=== PATIENT | male | born 1960 | race Two or more races ===

== ENCOUNTER 2025-06-23 12:10 | Inpatient (IN) | payer OTHER, SELFPAY ==
[2025-06-23] VITALS (16 sets, daily range): BP systolic 99–150; BP diastolic 71–98; BMI 30.4; BMI 30.3
[2025-06-23] MEDS: CELEBREX 200 MG PO (12:39)
[2025-06-23] MEDS: TYLENOL 1000 MG PO (12:40)
[2025-06-23 12:54] LABS: Glucose - Point of Care 108 mg/dl (70-99)
[2025-06-23] MEDS: NORMOSOL-R/PLASMALYTE-A 1000 IV (12:55)
[2025-06-23 13:10] LABS: Hematocrit 43.2 % (39.0-52.0); Hemoglobin 14.3 g/dL (13.0-18.0); Mean Corp Hgb Conc. 33.1 g/dL (33.0-37.0); Mean Corpuscular Volume 89.8 fL (80.0-94.0); Platelet Count 368 10^3/uL (130-400); Red Cell Dist. Width 12.0 % (11.5-14.5)
[2025-06-23 13:33] LABS: Blood Urea Nitrogen 12 mg/dl (9-20); Calcium 9.6 mg/dl (8.4-10.2); Carbon Dioxide 27 mmol/L (22-30); Chloride 105 mmol/L (98-107); Estimated Creatinine Clearance > 125 ml/min; Glucose 113 mg/dl (70-99); Potassium 4.1 mmol/L (3.5-5.1); Sodium 140 mmol/L (135-145); eGFR > 60.00
[2025-06-23 15:15] LABS: Glucose - Point of Care 110 mg/dl (70-99)
--- NOTE | 2025-06-23 15:24 | W.PN.SURGUPD ---
Surgical Update
Surgical Update
64 yo M s/p right partial 5th ray amputation primary closed
-Primary closed, no further surgical plans at the moment
-Recommend IV antibiotics per culture results
-1x culture, 2x pathology specimens obtained
-Patient to be NWB while inpatient, anticipate heel WB upon discharge pending clinical evaluations
-Will re assess on AM rounds
--- NOTE | 2025-06-23 15:31 | HPS.HSE ---
Addendum entered and electronically signed by Kierra Lockett MD 06/23/25 17:08:
Addendum
I saw and examined the patient.
The TRANSMISSION REPAIRER or PA's note was reviewed and I agree with the note.
Comment:
64 years old male presented for scheduled right partial fifth toe amputation by Dr. Gaston. Patient underwent the procedure well without complication. OR culture was sent. Discussed with gun club manager, recommend vancomycin until culture is back.
Patient had MRI at [facility], no records available.
Physical Exam
General: Well Developed, Well Nourished, No Apparent Distress, Comfortable and Conversant
HEENT: NormoCephalic, Moist mucous membranes, PERRLA, Ears Appear Normal and Hearing Impaired
Respiratory: Clear and Non Labored Respirations; No Wheezes, Rales, Rhonchi or Crackles
Cardiac: S1/S2 and Regular Rhythm; No Murmur, Rub or Gallop
GI: Soft, Non Tender, Non Distended and Normal Bowel Sounds
Musculoskeletal: No Clubbing and No Cyanosis
Skin: Warm, IV/Catheter Site and Other (RLE wrapped post surgery with cristy )
Neuro: Awake and AO x 3
Hematologic/Lymphatic: No Lymphadenopathy
Psych: Calm and Intact Judgment/Insight
#s/p right partial 5th ray amputation
Discussed with Dr. Jurado. Clean surgery site with a fresh looking wound. Primary closure was done.
Continue with vancomycin. Add cefepime.
Continue with pain control, Tylenol and as needed oxycodone
Await OR cultures
#hypertension
- continue lisinopril and metoprolol
#hyperlipidemia
- continue atorvastatin
#type 2 diabetes
- AccuCheck AC & HS
- SSI
- continue Jardiance
- hold metformin while in patient
#CAD
s/p CABG x3 vessel
- continue aspirin and clopidogrel
#COPD
- continue albuterol and Trelegy
#Hx osteomyelitis
Code status: full code
DVT prophylaxis: Lovenox
�
Total time spent to see the patient, examine the patient, review data and lab results, discuss treatment plan with patient, podiatry, nursing staff around 75 minutes
Original Note:
Family Physician
-
Family Physician: NOT KNOW UNKNOWN - PT DOES
Chief Complaint
-
admission post right partial ray amputation for IV antibiotics
History of Present Illness
Patient is a 64-year-old male with past medical history significant for hypertension, hyperlipidemia, type 2 diabetes, COPD and Hx osteomyelitis who presented to [facility] for scheduled right partial 5th ray amputation with Dr. Blayne Jurado. Patient
surgery without adverse events, seen in PACU. Patient workup was done out patient at [place], it was noted that patient is generally noncompliant. Plan for surgery was to complete amputation and have secondary closure, surgeon reported fresh blood
and tissue and elected for primary closure while in OR. Patient denies any recent fever, chills, cough, shortness of breath, chest pain, nausea, vomiting, constipation, diarrhea or urinary symptoms.
Medical History
Past Medical History
Past Medical History: Reports Other
Additional Past Medical History:
hypertension
hyperlipidemia
type 2 diabetes
COPD
Hx osteomyelitis
Past Surgical History: Reports Other
Additional Past Surgical History:
CABG x3 vessel
right partial 5th ray amputation
Social History
Tobacco: Former Smoker (quit 7 years ago )
Alcohol: Occasional
Drug: None
Living: With Family
Employment: Retired
Family History
Family History: Other (Father: COPD, [place]; Mother: Alzheimer's )
Allergies / Home Medications
Allergies reflects when Allergies were last updated in [facility].
Home Medications with original date entered in [facility]
Allergy/Medication List:
Allergies
Allergy/AdvReac Type Severity Reaction Status Date / Time
Penicillins Allergy Unknown Unknown Verified 06/23/25 12:24
Home Medications
albuterol sulfate 0.63 mg/3 mL solution for nebulization 0.63 mg inhalation BID 06/23/25
aspirin 81 mg capsule 81 mg PO DAILY 06/23/25
atorvastatin 40 mg tablet 40 mg PO HS 06/23/25
clopidogrel 75 mg tablet 75 mg PO DAILY 06/23/25
empagliflozin 25 mg tablet (Jardiance) 25 mg PO DAILY 06/23/25
fluticasone fur. 100 mcg-umeclid 62.5 mcg-vilant 25 mcg inhalat.powder (Trelegy Ellipta) 1 inh inhalation DAILY 06/23/25
lisinopril 5 mg tablet 5 mg PO DAILY 06/23/25
metformin 500 mg tablet 500 mg PO BID 06/23/25
metoprolol tartrate 50 mg tablet 25 mg PO BID 06/23/25
Review of Systems
-
History Source: Patient
Constitutional: Reports No Symptoms
EENT: Reports No Symptoms
Respiratory: Reports No Symptoms
Cardiac: Reports No Symptoms
Abdomen/GI: Reports No Symptoms
: Reports No Symptoms
Musculoskeletal: Reports No Symptoms
Skin: Reports No Symptoms
Neurological: Reports No Symptoms
Endocrine: Reports No Symptoms
Hematologic/Lymphatic: Reports No Symptoms
Psych: Reports No Symptoms
Physical Exam
Vital Signs
Vital Signs
Temp Pulse Resp BP Pulse Ox
98.7 F 79 18 146/83 95
06/23/25 12:35 06/23/25 12:35 06/23/25 12:35 06/23/25 12:35 06/23/25 12:35
Physical Exam
General: Well Developed, Well Nourished, No Apparent Distress, Comfortable and Conversant
HEENT: NormoCephalic, Moist mucous membranes, PERRLA, Ears Appear Normal and Hearing Impaired
Respiratory: Clear and Non Labored Respirations; No Wheezes, Rales, Rhonchi or Crackles
Cardiac: S1/S2 and Regular Rhythm; No Murmur, Rub or Gallop
GI: Soft, Non Tender, Non Distended and Normal Bowel Sounds
Musculoskeletal: No Clubbing and No Cyanosis
Skin: Warm, IV/Catheter Site and Other (RLE wrapped post surgery with cristy )
Neuro: Awake and AO x 3
Hematologic/Lymphatic: No Lymphadenopathy
Psych: Calm and Intact Judgment/Insight
Laboratory Results
-
06/23/25 12:54
06/23/25 12:54
Data Reviewed
-
Medical Tests (Nuc Med, Echo, EKG etc): Report Reviewed by me (EKG: NORMAL SINUS RHYTHM POSSIBLE LEFT ATRIAL ENLARGEMENT NONSPECIFIC T WAVE ABNORMALITY)
Lab Data: Labs Reviewed by me
Impression/Plan
-
IMPRESSION/PLAN:
#s/p right partial 5th ray amputation
EKG: NORMAL SINUS RHYTHM
POSSIBLE LEFT ATRIAL ENLARGEMENT
NONSPECIFIC T WAVE ABNORMALITY
- Admit to med/surg
- Consult podiatry
- IV Vanco and Cefepime
- supportive care
- Consult PT
#hypertension
- continue lisinopril and metoprolol
#hyperlipidemia
- continue atorvastatin
#type 2 diabetes
- AccuCheck AC & HS
- SSI
- continue Jardiance
- hold metformin while in patient
#CAD
s/p CABG x3 vessel
- continue aspirin and clopidogrel
#COPD
- continue albuterol and Trelegy
#Hx osteomyelitis
Code status: full code
DVT prophylaxis: Lovenox
[2025-06-23 16:06] LABS: Glucose - Point of Care 100 mg/dl (70-99)
[2025-06-23] MEDS: VANCOCIN 540 MG IV (16:58)
[2025-06-23] MEDS: NOVOLOG FLEXPEN-LOW RESISTANCE SC (18:53)
--- NOTE | 2025-06-23 19:20 | PHA.VAN.IN ---
Assessment
- Assessment
Renal Function: Unknown baseline
Concomitant Antimicrobials: cefepime 2 g IV Q8H
AUC Dosing Plan
- Dosing Variables
Dosing Weight (kg): 113.398
Dosing CrCl (ml/min): >125
Vd coefficient (L/kg): 0.7
- Empiric Dosing
Initial / Loading Dose: 2000 mg
Maintenance Regimen: 1250 mg IV Q12H
Estimated AUC (mcg*h/mL): 549
Estimated Peak (mcg*h/mL): 37.8
Estimated Trough (mcg/ml): 12.1
Estimated Half Life (H): 6.4
- Monitoring
No levels ordered at this time: levels to be ordered on follow-up
Pharmacokinetics Vancomycin I
- -
Patient Age: 64
Patient Sex: Male
Vancomycin Day #: 1
Indication: Bone And Joint
Requesting Provider: Marylin VALENZUELA
Pertinent Antimicrobial Allergies:
penicillins
Height / Weight:
Height 6 ft 4 in
Actual Weight 113.398 kg
- Vital Signs / Lab Results
Temp Pulse Resp BP Pulse Ox
97.7 F 119 17 135/76 94
06/23/25 16:22 06/23/25 18:30 06/23/25 18:15 06/23/25 19:00 06/23/25 19:00
Lab Results - Hematology
06/23/25
12:54
WBC 8.8
Lab Results - Chemistry
06/23/25
12:54
BUN 12
Creatinine 0.7
Estimated Creat Clear > 125
Microbiology Results
06/23/25 Unknown Gram Stain - Preliminary
Foot - Right
[2025-06-23] MEDS: SYMBICORT 80/4.5 MCG INHALER 2 PUFF INH (20:12)
[2025-06-23 21:23] LABS: Glucose - Point of Care 175 mg/dl (70-99)
[2025-06-23] MEDS: STERILE WATER FOR INJECTION 10 ML IV (21:25)
[2025-06-23] MEDS: LOVENOX 40 MG SC (21:25)
[2025-06-23] MEDS: LIPITOR 40 MG PO (21:25)
[2025-06-23] MEDS: LOPRESSOR 25 MG PO (21:26)
[2025-06-23] MEDS: MAXIPIME 2000 MG IV (21:26)
--- NOTE | 2025-06-23 23:06 | TRANSFER ---
Received pt post op right partial 5th ray amputation @ 1920. Right foot dressed w 4x4, adaptic and cristy. +popiteal pulse, pt denied pain. VSS. patient made aware of non wt bearing status. Assessment as documented. Care ongoing.
[2025-06-24 03:17] VITALS: BP 141/84
[2025-06-24] MEDS: MAXIPIME 2000 MG IV ×3 (05:54→21:17)
[2025-06-24] MEDS: STERILE WATER FOR INJECTION 10 ML IV ×3 (05:54→21:17)
[2025-06-24] MEDS: VANCOCIN 275 MG IV ×2 (05:54→17:28)
--- NOTE | 2025-06-24 06:39 | OR.RPT ---
Operative Report
Operative Report
Operative Report
Patient Name:�Douglas Lowery
Medical Record Number:�[id number]
Date of Surgery:�[Date]
Surgeon:�Eddie Jurado DPM
Assistants:�Eddie Curiel DPM
Preoperative Diagnosis:
Osteomyelitis of the 5th metatarsal head and base of the proximal phalanx
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
Postoperative Diagnosis:
Same as preoperative
Procedure Performed:
Right partial 5th ray amputation CPT 22605
Anesthesia:
Monitored anesthesia care with local block (20 cc of 0.5% bupivacaine plain)
Hemostasis:
Anatomic dissection
Estimated Blood Loss:
Less than 20 mL
Specimens:
Resected 5th metatarsal head and proximal phalanx base sent for pathology
Metatarsal clearing fragment sent for pathology
Deep tissue and bone cultures obtained following irrigation (�post-washout cultures�)
Complications:
None
Indications for Procedure:
The patient presented with a chronic nonhealing wound overlying the right 5th MTPJ, refractory to conservative management. MRI demonstrated osteomyelitis involving the 5th metatarsal head and base of the proximal phalanx, as well as septic arthritis
of the 5th MTPJ. Given the chronicity of the infection and poor local tissue condition, a partial 5th ray amputation was indicated to achieve source control, facilitate healing, and preserve as much foot function as possible.
Operative Description:
The patient was brought to the operating room and placed supine on the operating table. Following the induction of anesthesia, the right lower extremity was prepped and draped in the usual sterile fashion.
Attention was directed to the lateral aspect of the right foot where a chronic ulceration was noted overlying the 5th MTPJ. A full-thickness elliptical incision was made encompassing the wound and extending proximally along the 5th metatarsal shaft
to healthy, viable tissue margins. The incision was deepened through subcutaneous tissue with care taken to preserve viable tissue planes.
Dissection was carried down to the level of the 5th metatarsal, which appeared soft and discolored at the head and distal shaft consistent with osteomyelitis. The 5th MTPJ capsule was incised. The base of the proximal phalanx was similarly eroded.
The 5th digit and distal 5th metatarsal were resected using a sagittal saw at a level of healthy, bleeding bone approximately at the distal third of the metatarsal. The specimen was passed off for pathology. A cleared fragment of the 5th�metatarsal
shaft was then obtained.
All devitalized soft tissue was sharply debrided until only viable bleeding tissue remained. The wound was copiously irrigated with normal saline. After irrigation, deep tissue and bone samples were obtained for cultures.
Inspection of the remaining wound bed showed no residual purulence, necrosis, or other evidence of infection. Hemostasis was achieved with electrocautery.
Given the surgical site appeared completely free from infection, the wound was deemed appropriate for primary closure. Deep tissues were reapproximated with 2-0 Vicryl sutures, subcutaneous tissues with 3-0 Vicryl, and the skin was closed with 3-0
Prolene in a simple interrupted fashion. The surgical site was dressed with betadine, sterile non-adherent gauze, 4x4s, Kerlix, and a light compressive wrap.
The patient tolerated the procedure well and was transported to the recovery unit in stable condition with intact vascular status to the remaining foot. The patient will remain [id number] on the right lower extremity. He will be admitted for
IV antibiotics, physical therapy, and monitoring of culture results. The dressing is to remain clean, dry, and intact until the first postoperative visit.
[2025-06-24 07:00] VITALS: BP 143/91
[2025-06-24 07:24] LABS: Hematocrit 40.8 % (39.0-52.0); Hemoglobin 13.3 g/dL (13.0-18.0); Mean Corp Hgb Conc. 32.6 g/dL (33.0-37.0); Mean Corpuscular Volume 92.1 fL (80.0-94.0); Platelet Count 370 10^3/uL (130-400); Red Cell Dist. Width 12.0 % (11.5-14.5)
[2025-06-24 07:43] LABS: Glucose - Point of Care 175 mg/dl (70-99)
--- NOTE | 2025-06-24 07:54 | W.PN.UPDATE ---
Update Note
Progress Note Update
64 yo M s/p right partial 5th ray amputation primary closure. Doing well this AM, no pain, CFT wnl, gross motor function intact
-Primary closed, no further surgical plans at the moment
-Recommend IV antibiotics per culture results
-1x culture, 2x pathology specimens obtained
-Patient to be NWB while inpatient, anticipate heel WB upon discharge pending clinical evaluations
-will follow
[2025-06-24 07:55] LABS: Blood Urea Nitrogen 11 mg/dl (9-20); Calcium 9.4 mg/dl (8.4-10.2); Carbon Dioxide 28 mmol/L (22-30); Chloride 103 mmol/L (98-107); Estimated Creatinine Clearance > 125 ml/min; Glucose 115 mg/dl (70-99); Potassium 4.6 mmol/L (3.5-5.1); Sodium 138 mmol/L (135-145); eGFR > 60.00
[2025-06-24] MEDS: NOVOLOG FLEXPEN-LOW RESISTANCE 1 UNITS SC (08:00)
[2025-06-24] MEDS: SPIRIVA RESPIMAT 2.5 MCG 2 PUFF INH (08:10)
[2025-06-24] MEDS: SYMBICORT 80/4.5 MCG INHALER 2 PUFF INH ×2 (08:11→20:07)
[2025-06-24] MEDS: ZESTRIL 5 MG PO (09:06)
[2025-06-24] MEDS: PLAVIX 75 MG PO (09:06)
[2025-06-24] MEDS: FARXIGA 10 MG PO (09:06)
[2025-06-24] MEDS: ASPIR LOW (ENTERIC COATED) 81 MG PO (09:06)
[2025-06-24] MEDS: LOPRESSOR 25 MG PO ×2 (09:06→21:16)
[2025-06-24] MEDS: ROXICODONE 5 MG PO ×3 (09:18→21:29)
[2025-06-24 09:42] LABS: Glycohemoglobin (HgbA1c) 6.4 % (4.0-5.6)
--- NOTE | 2025-06-24 09:53 | PHA.VAN.FU ---
Vancomycin Assessment / Plan
- Assessment
Renal Function: Stable
In the past 24 hrs, patient has been: Afebrile
Concomitant Antimicrobials: cefepime
- Dosing Plan
Continue: Vanc 1250mg Q12H
- Monitoring Plan
No level(s) ordered at this time: consider levels in next few days
- Follow Up
Pharmacy will continue to follow.
Vancomycin Follow UP
- -
Patient Age: 64
Patient Sex: Male
Vancomycin Day #: 2
Indication: Bone And Joint
Requesting Provider: Marylin VALENZUELA
Pertinent Antimicrobial Allergies:
penicillins - as a child
Height / Weight:
Height 6 ft 4 in
Actual Weight 112.945 kg
Pertinent Past Medical History: BMI ~30, DM 2
- Vital Signs / Lab Results
Temp Pulse Resp BP Pulse Ox
98.4 F 72 18 143/91 97
06/24/25 07:00 06/24/25 09:06 06/24/25 07:00 06/24/25 09:06 06/24/25 07:00
Lab Results - Hematology
06/23/25 06/24/25
12:54 06:46
WBC 8.8 11.2 H
Lab Results - Chemistry
06/23/25 06/24/25
12:54 06:46
BUN 12 11
Creatinine 0.7 0.6 L
Estimated Creat Clear > 125 > 125
Microbiology Results
06/23/25 Unknown Gram Stain - Preliminary
Foot - Right
[2025-06-24] MEDS: TYLENOL 650 MG PO ×2 (10:29→21:28)
[2025-06-24 10:56] LABS: Glucose - Point of Care 100 mg/dl (70-99)
[2025-06-24 11:00] VITALS: BP 128/74
[2025-06-24] MEDS: NOVOLOG FLEXPEN-LOW RESISTANCE SC ×2 (11:04→17:27)
[2025-06-24 11:28] VITALS: BP 137/74; PULSE 75
--- NOTE | 2025-06-24 13:45 | W.PN.HOSP.TC ---
Today's Communication/Plan
-
.
Assessment / Plan
Assessment / Plan
Physical Exam
General: Well Developed, Well Nourished, No Apparent Distress, Comfortable and Conversant
HEENT: NormoCephalic, Moist mucous membranes, PERRLA, Ears Appear Normal and Hearing Impaired
Respiratory: Clear and Non Labored Respirations; No Wheezes, Rales, Rhonchi or Crackles
Cardiac: S1/S2 and Regular Rhythm; No Murmur, Rub or Gallop
GI: Soft, Non Tender, Non Distended and Normal Bowel Sounds
Musculoskeletal: No Clubbing and No Cyanosis
Skin: Warm, IV/Catheter Site and Other (RLE wrapped post surgery with cristy )
Neuro: Awake and AO x 3
Hematologic/Lymphatic: No Lymphadenopathy
Psych: Calm and Intact Judgment/Insight
#s/p right partial 5th toe amputation
Discussed with Dr. Jurado. Clean surgery site with a fresh looking wound. Primary closure was done.
Continue with vancomycin. Add cefepime.
Continue with pain control, Tylenol and as needed oxycodone
Await OR cultures
# Leukocytosis
Afebrile
await culture
Empiric ABX
#hypertension
- continue lisinopril and metoprolol
#hyperlipidemia
- continue atorvastatin
#type 2 diabetes
- AccuCheck AC & HS
- SSI
- HGB A1C 6.4
- continue Jardiance
- hold metformin while in patient
#CAD
s/p CABG x3 vessel
- continue aspirin and clopidogrel
#COPD
- continue albuterol and Trelegy
#Hx osteomyelitis
Code status: full code
DVT prophylaxis: Lovenox
�
Total time spent to see the patient, examine the patient, review data and lab results, discuss treatment plan with patient, podiatry, nursing staff around 55 minutes
Anticipated Discharge: 24 - 48 hours
Subjective/Interval History
-
Date of Service: June 24, 2025
No chest pain
No SOB
No abd pain
Mild pain in right foot
Objective Data
-
Labs:
Laboratory Results
06/24/25
06:46
WBC 11.2 H
Hgb 13.3
Hct 40.8
Plt Count 370
Sodium 138
Potassium 4.6
Chloride 103
Carbon Dioxide 28
BUN 11
Creatinine 0.6 L
Glucose 115 H
Calcium 9.4
Vital Signs:
Vital Signs
Temp Pulse Resp BP Pulse Ox
98.0 F 70 20 128/74 95
06/24/25 11:00 06/24/25 11:00 06/24/25 11:00 06/24/25 11:00 06/24/25 11:00
I&O
06/23/25 06/24/25 06/25/25
06:59 06:59 06:59
Intake Total 240 / 240 535 / 535
Output Total 2100 / 2100 300 / 300
Balance -1860 / -1860 235 / 235
[2025-06-24 15:00] VITALS: BP 140/73
--- NOTE | 2025-06-24 15:36 | CM ---
CM met with pt bedside
Pt resides with his sons who work out of the home- home alone most of the time
[facility] with [address] [facility] on [address] [place], full flight to 2nd floor
Pt has powder room on 1st and will have 1st floor set up on dc
Pt is typically independent with his ADLs, no ADs
He is current with [facility] for wound care to his foot
PCP- Betito Johnson
Rx- [facility]
Pt is POD#1 5th toe amp with [facility] recs by therapy
Will plan for [facility] on dc at this time
Pt will be NWB during admission and anticipate heel W/C with shoe on dc
Pt will need WW- due to [facility] plan, therapy cannot be issued beside
CM to arrange for WW through DME provider, will watch for possible W/C needs if he remains NWB on dc
Discharge Disposition- anticipate home with [facility], new WW and possibly new W/C
[2025-06-24 17:25] LABS: Glucose - Point of Care 105 mg/dl (70-99)
[2025-06-24] MEDS: LOVENOX 40 MG SC (18:41)
[2025-06-24] MEDS: LIPITOR 40 MG PO (21:16)
[2025-06-24 21:57] LABS: Glucose - Point of Care 125 mg/dl (70-99)
[2025-06-24 23:15] VITALS: BP 133/80
[2025-06-25] MEDS: MAXIPIME 2000 MG IV (06:00)
[2025-06-25] MEDS: STERILE WATER FOR INJECTION 10 ML IV (06:00)
[2025-06-25] MEDS: VANCOCIN 275 MG IV (06:00)
[2025-06-25] MEDS: TYLENOL 650 MG PO ×3 (06:07→22:07)
[2025-06-25] MEDS: ROXICODONE 5 MG PO ×3 (06:14→19:39)
[2025-06-25 07:05] VITALS: BP 137/80
[2025-06-25 07:22] LABS: Glucose - Point of Care 113 mg/dl (70-99)
--- NOTE | 2025-06-25 07:48 | VATNOTE ---
Called by floor to evaluate IV site after vancomycin infiltration, asked PCN to apply heat and elevate the extremity immediately. Upon this RNs assessment, pt says there is mild soreness at the site, erythema noted but no swelling appreciated. Heat
applied, will continue to monitor.
[2025-06-25] MEDS: SYMBICORT 80/4.5 MCG INHALER 2 PUFF INH ×2 (07:53→19:31)
[2025-06-25] MEDS: SPIRIVA RESPIMAT 2.5 MCG 2 PUFF INH (07:53)
[2025-06-25] MEDS: NOVOLOG FLEXPEN-LOW RESISTANCE SC ×3 (08:06→17:11)
[2025-06-25] MEDS: PLAVIX 75 MG PO (08:10)
[2025-06-25] MEDS: FARXIGA 10 MG PO (08:10)
[2025-06-25] MEDS: ASPIR LOW (ENTERIC COATED) 81 MG PO (08:10)
[2025-06-25] MEDS: ZESTRIL 5 MG PO (08:10)
[2025-06-25] MEDS: LOPRESSOR 25 MG PO ×2 (08:13→19:38)
--- NOTE | 2025-06-25 09:10 | W.PN.UPDATE ---
Update Note
Progress Note Update
64 yo M s/p right partial 5th ray amputation primary closure. Doing well this AM, no pain, CFT wnl, gross motor function intact, incision line with skin well reapproximated, all sutures in place, no drainage, no hematoma
- dressing chaged betadine paint, dsd, cristy
-Recommend IV antibiotics in patient
-- transition to PO abx on dc
-1x culture NGTD, 2x pathology
-Patient to be NWB while inpatient, anticipate heel WB upon discharge pending clinical evaluations
-- obtaining darco wedge orthopedic shoe
-may follow up in office with Dr. Jurado
--- NOTE | 2025-06-25 09:53 | W.PN.HOSP.TC ---
Today's Communication/Plan
-
dc in am 06/26, will consult onsite case manager
change to oral antibiotics.
Assessment / Plan
Assessment / Plan
Physical Exam
General: Well Developed, Well Nourished, No Apparent Distress, Comfortable and Conversant
HEENT: NormoCephalic, Moist mucous membranes, PERRLA, Ears Appear Normal and Hearing Impaired
Respiratory: Clear and Non Labored Respirations; No Wheezes, Rales, Rhonchi or Crackles
Cardiac: S1/S2 and Regular Rhythm; No Murmur, Rub or Gallop
GI: Soft, Non Tender, Non Distended and Normal Bowel Sounds
Musculoskeletal: No Clubbing and No Cyanosis
Skin: Warm, IV/Catheter Site and Other (RLE wrapped post surgery with cristy )
Neuro: Awake and AO x 3
Hematologic/Lymphatic: No Lymphadenopathy
Psych: Calm and Intact Judgment/Insight
#s/p right partial 5th toe amputation
Discussed with Dr. Jurado. Clean surgery site with a fresh looking wound. Primary closure was done.
Dressing was changed 06/25: Healing well with no bleeding. Okay to continue Lovenox.
S/p vancomycin and cefepime. OR culture : No growth to date. Patient was taking doxycycline for several days before surgery.
Discussed with podiatry, will do doxycycline and Keflex for 7 days post surgery.
Continue with pain control, Tylenol and as needed oxycodone
# Leukocytosis
Afebrile
#hypertension
- continue lisinopril and metoprolol
#hyperlipidemia
- continue atorvastatin
#type 2 diabetes
- AccuCheck AC & HS
- SSI
- HGB A1C 6.4
- continue Jardiance
-Resume metformin
#CAD
No chest pain. No shortness of breath
s/p CABG x3 vessel
- continue aspirin and clopidogrel
#COPD
- continue albuterol and Trelegy
#Hx osteomyelitis
Code status: full code
DVT prophylaxis: Lovenox
�
Total time spent to see the patient, examine the patient, review data and lab results, discuss treatment plan with patient, podiatry, nursing staff around 55 minutes
Anticipated Discharge: Within 24 hours
Subjective/Interval History
-
Date of Service: June 25, 2025
Objective Data
-
Vital Signs:
Vital Signs
Temp Pulse Resp BP Pulse Ox
97.9 F 67 16 137/80 96
06/25/25 07:05 06/25/25 08:10 06/25/25 07:58 06/25/25 08:10 06/25/25 07:58
I&O
06/24/25 06/25/25 06/26/25
06:59 06:59 06:59
Intake Total 240 / 240 2792 / 2792
Output Total 2100 / 2100 4150 / 4150
Balance -1860 / -1860 -1358 / -1358
[2025-06-25 11:41] LABS: Glucose - Point of Care 95 mg/dl (70-99)
[2025-06-25] MEDS: KEFLEX 500 MG PO ×3 (12:45→22:07)
[2025-06-25 15:20] VITALS: BP 134/73
[2025-06-25 16:28] VITALS: BP 143/79; PULSE 66; O2SAT 97
[2025-06-25 17:06] LABS: Glucose - Point of Care 91 mg/dl (70-99)
[2025-06-25] MEDS: LOVENOX 40 MG SC (17:13)
[2025-06-25] MEDS: GLUCOPHAGE 500 MG PO (17:13)
[2025-06-25] MEDS: VIBRAMYCIN 100 MG PO (19:39)
[2025-06-25] MEDS: LIPITOR 40 MG PO (22:07)
[2025-06-25 22:27] LABS: Glucose - Point of Care 93 mg/dl (70-99)
[2025-06-25 23:00] VITALS: BP 133/81
[2025-06-26] MEDS: ROXICODONE 5 MG PO (03:19)
[2025-06-26 06:59] LABS: Glucose - Point of Care 122 mg/dl (70-99)
[2025-06-26 07:10] VITALS: BP 149/87
[2025-06-26 07:24] LABS: Hematocrit 43.6 % (39.0-52.0); Hemoglobin 14.2 g/dL (13.0-18.0); Mean Corp Hgb Conc. 32.6 g/dL (33.0-37.0); Mean Corpuscular Volume 94.8 fL (80.0-94.0); Platelet Count 354 10^3/uL (130-400); Red Cell Dist. Width 12.2 % (11.5-14.5)
[2025-06-26] MEDS: SPIRIVA RESPIMAT 2.5 MCG 2 PUFF INH (07:37)
[2025-06-26] MEDS: SYMBICORT 80/4.5 MCG INHALER 2 PUFF INH (07:37)
[2025-06-26 07:40] LABS: Blood Urea Nitrogen 9 mg/dl (9-20); Calcium 9.7 mg/dl (8.4-10.2); Carbon Dioxide 29 mmol/L (22-30); Chloride 104 mmol/L (98-107); Estimated Creatinine Clearance > 125 ml/min; Glucose 123 mg/dl (70-99); Potassium 4.7 mmol/L (3.5-5.1); Sodium 138 mmol/L (135-145); eGFR > 60.00
[2025-06-26] MEDS: VIBRAMYCIN 100 MG PO (08:11)
[2025-06-26] MEDS: ZESTRIL 5 MG PO (08:11)
[2025-06-26] MEDS: ASPIR LOW (ENTERIC COATED) 81 MG PO (08:11)
[2025-06-26] MEDS: LOPRESSOR 25 MG PO (08:11)
[2025-06-26] MEDS: GLUCOPHAGE 500 MG PO (08:11)
[2025-06-26] MEDS: FARXIGA 10 MG PO (08:11)
[2025-06-26] MEDS: PLAVIX 75 MG PO (08:11)
[2025-06-26] MEDS: KEFLEX 500 MG PO (08:11)
[2025-06-26] MEDS: FLUZONE HIGH-DOSE 2025-26 0.5 ML IM (08:14)
[2025-06-26] MEDS: NOVOLOG FLEXPEN-LOW RESISTANCE SC (08:21)
--- NOTE | 2025-06-26 09:12 | CM ---
CM following re: discharge planning.
Reviewed pt's chart,met with pt.
Discharge order noted.
Pt is aware, expressed his agreement wit discharge. Pt stated [facility] already spoke to him and they will provide RN, PT and OT.
PT and OT updated notes noted and per PT pt will need a walker. Pt is aware and pt requested a walker to be delivered to his house. CM placed an order for a walker with [facility] and liaison confirmed that a walker will be delivered to pt's home
today.
Pt stated his friend will transport home.
Please fax discharge instructions to [facility] at [phone]
D/C plan: home with [facility] and a walker. Friend to transport.
--- NOTE | 2025-06-26 09:44 | W.PN.HOSP.TC ---
Today's Communication/Plan
-
dc
Assessment / Plan
Assessment / Plan
Physical Exam
General: Well Developed, Well Nourished, No Apparent Distress, Comfortable and Conversant
HEENT: NormoCephalic, Moist mucous membranes, PERRLA, Ears Appear Normal and Hearing Impaired
Respiratory: Clear and Non Labored Respirations; No Wheezes, Rales, Rhonchi or Crackles
Cardiac: S1/S2 and Regular Rhythm; No Murmur, Rub or Gallop
GI: Soft, Non Tender, Non Distended and Normal Bowel Sounds
Musculoskeletal: No Clubbing and No Cyanosis
Skin: Warm, IV/Catheter Site and Other (RLE wrapped post surgery with cristy )
Neuro: Awake and AO x 3
Hematologic/Lymphatic: No Lymphadenopathy
Psych: Calm and Intact Judgment/Insight
#s/p right partial 5th toe amputation
Discussed with Dr. Jurado. Clean surgery site with a fresh looking wound. Primary closure was done.
Dressing was changed 06/25: Healing well with no bleeding. Okay to continue Lovenox.
S/p vancomycin and cefepime. OR culture : No growth to date. Patient was taking doxycycline for several days before surgery.
Discussed with podiatry, will do doxycycline and Keflex for 7 days post surgery. Prescription given. Patient requested prescription for oxycodone to use as Tylenol does not help with shooting pain at times
Continue with pain control, Tylenol and as needed oxycodone
# Leukocytosis
Afebrile
#hypertension
- continue lisinopril and metoprolol
#hyperlipidemia
- continue atorvastatin
#type 2 diabetes
- AccuCheck AC & HS
- SSI
- HGB A1C 6.4
- continue Jardiance
-Resume metformin
#CAD
No chest pain. No shortness of breath
s/p CABG x3 vessel
- continue aspirin and clopidogrel
#Heart murmur. Patient is unaware of valvular heart disease. No shortness of breath or chest pain. He is seeing his low voltage electrician in [place] in 2 weeks. Advised to discuss it with his a primary low voltage electrician
#COPD
- continue albuterol and Trelegy
#Hx osteomyelitis
Code status: full code
DVT prophylaxis: Lovenox
�
Total discharge time spent to see the patient, examine the patient, review data and lab results, discuss discharge plan with patient, podiatry, nursing staff around 65 minutes
Anticipated Discharge: Today
Subjective/Interval History
-
Date of Service: June 26, 2025
He is feeling better, requesting to go home before lunch. No chest pain. No shortness of breath. Requesting pain medicine for shooting pain in addition to Tylenol
Objective Data
-
Labs:
Laboratory Results
06/26/25
06:45
WBC 6.6
Hgb 14.2
Hct 43.6
Plt Count 354
Sodium 138
Potassium 4.7
Chloride 104
Carbon Dioxide 29
BUN 9
Creatinine 0.7
Glucose 123 H
Calcium 9.7
Vital Signs:
Vital Signs
Temp Pulse Resp BP Pulse Ox
98.3 F 95 17 149/87 95
06/26/25 07:10 06/26/25 07:40 06/26/25 07:40 06/26/25 07:10 06/26/25 07:40
I&O
06/25/25 06/26/25 06/27/25
06:59 06:59 06:59
Intake Total 2792 / 2792 3772 / 3772 560 / 560
Output Total 4150 / 4150 3225 / 3225
Balance -1358 / -1358 547 / 547 560 / 560
[2025-06-26 10:39] VITALS: BP 132/80
--- NOTE | 2025-06-27 07:29 | W.DCSUMMARY ---
Discharge Summary
Discharge Data
Date of Admission: 06/23/25
Date of Discharge: 06/26/25
-
Pending Results: No
Hospital Course
64 years old male admitted after undergoing elective partial fifth toe amputation for septic arthritis. Patient did not have hemodynamic instability. He was admitted for empiric antibiotics and pain control. His pain was controlled with Tylenol
and low-dose oxycodone as needed. OR culture did not show any growth. Patient was taking course of antibiotic prior to surgery. Patient received empiric vancomycin and cefepime with good tolerance. Basic metabolic panel remained within normal
average. Antibiotic regimen was discussed with podiatry. Patient was discharged to finish course of Keflex and doxycycline. His wound looked clean. He was evaluated by physical therapy and lining caser. Patient was discharged home in stable
condition.
Discharge Plan
-
Patient Disposition: Home with Home Care
Discharge Diagnosis/Procedures: Status post right partial 5th ray amputation primary closure.
You received intravenous antibiotic. Wound culture did not show any growth.
Diet: As tolerated
Additional Activity: heel WBAT in forefoot offloading shoe to left
Referrals:
Eddie Jurado MD [Active, Podiatry] - in one week
UNKNOWN - PT DOES,NOT KNOW [Family Provider]
Prescriptions:
New
acetaminophen 325 mg Tablet
650 mg PO Q4HPRN PRN (Reason: mild pain) Qty: 20 0RF
doxycycline hyclate 100 mg Capsule
100 mg PO Q12 Qty: 8 0RF
cephalexin 500 mg Capsule
500 mg PO QID Qty: 16 0RF
Rx Instructions:
Patient tolerated medication in the hospital
oxycodone 5 mg tablet
5 mg PO BIDPRN PRN (Reason: severe pain) Qty: 10 0RF
Continued
atorvastatin 40 mg Tablet
40 mg PO HS
metformin 500 mg Tablet
500 mg PO BID
albuterol sulfate 0.63 mg/3 mL Solution For Nebulization
0.63 mg INHALATION BID
Patient Comments:
pt unsure of dosage
clopidogrel 75 mg Tablet
75 mg PO DAILY
metoprolol tartrate 50 mg Tablet
25 mg PO BID
lisinopril 5 mg Tablet
5 mg PO DAILY
Jardiance 25 mg Tablet
25 mg PO DAILY
Trelegy Ellipta 100-62.5-25 mcg Blister With Device
1 inh INHALATION DAILY
aspirin 81 mg Capsule
81 mg PO DAILY
Discharge Orders:
Discharge Patient (As Directed); Ordered 06/26/25
Ordered By: Kierra Lockett
Discharge Date and Time
Discharge Date/Time: 06/26/25 11:49
Print Language: GAMBIAN
--- NOTE | 2025-06-27 12:10 | PN.CDI ---
Addendum entered and electronically signed by Kierra Lockett MD 06/27/25 13:00:
Chronic osteomyelitis is a valid diagnosis
Original Note:
CDI
- -
CDI:
Physician Documentation Request
Admit Date: 06/23/25 12:10
Dear Doctor Levy,
Patient admitted with septic arthritis s/p right partial 5th ray amputation primary closure.
06/26 PN, 's/p vancomycin and cefepime. Discussed with podiatry, will do doxycycline and Keflex for 7 days post surgery.
06/23 PTH Surgical Specimen, 'Final diagnosis: Right foot, fifth toe ....chronic osteomyelitis identified.... Negative for acute osteomyelitis.'
Please indicate in your progress notes if you are in agreement that the above diagnosis is valid for this patient:
____ - Chronic osteomyelitis is a valid diagnosis (Please include it in your progress notes)
____ - Chronic osteomyelitis is not a valid diagnosis for this patient
____ - Other
Use of terms such as suspected, likely, concern for, or probable are acceptable for a diagnosis that is being evaluated, monitored or treated as if it exists and can be coded in the inpatient setting, when documented at the time of discharge.
Thank you,
Nila JOYCE,RN,CCDS
CDI Specialist
Available via [employer] text
Please use your independent medical judgment in providing your response.
== END 2025-06-26 11:49 | disposition home health service (06) | DRG 617 ==
LOC: 2 SOUTH 12:10
PROVIDERS: Nurse Practitioner Family; ADMITTING PHYSICIAN Student in an Organized Health Care Education/Training Program; ATTENDING PHYSICIAN Internal Medicine
PROC: 0Y6M0ZF Detachment at Right Foot, Partial 5th Ray, Open Approach (ICD-10-PCS; 2025-06-24)
PROC: 3E02340 Introduction of Influenza Vaccine into Muscle, Percutaneous Approach (ICD-10-PCS; 2025-06-26)
DX: E11.69 Type 2 diabetes mellitus with other specified complication (principal); M00.9 Pyogenic arthritis, unspecified; M86.671 Other chronic osteomyelitis, right ankle and foot; I25.10 Atherosclerotic heart disease of native coronary artery without angina pectoris; I10 Essential (primary) hypertension; D72.829 Elevated white blood cell count, unspecified; L97.519 Non-pressure chronic ulcer of other part of right foot with unspecified severity; E78.5 Hyperlipidemia, unspecified; E11.621 Type 2 diabetes mellitus with foot ulcer; J44.9 Chronic obstructive pulmonary disease, unspecified; Z95.1 Presence of aortocoronary bypass graft; Z88.0 Allergy status to penicillin; Z87.891 Personal history of nicotine dependence; Z82.0 Family history of epilepsy and other diseases of the nervous system; Z82.5 Family history of asthma and other chronic lower respiratory diseases; Z82.49 Family history of ischemic heart disease and other diseases of the circulatory system; Z23 Encounter for immunization; Z79.84 Long term (current) use of oral hypoglycemic drugs; Z91.199 Patient's noncompliance with other medical treatment and regimen due to unspecified reason
CPT/HCPCS: 80048; 82962; 83036; 85027; 87070; 87075; 87205; 88304; 88305; 88311; 90662; 93005; 94640; 97116; 97162; 97530; G0008